=== PATIENT | female | born 1990 | race Caucasian/White ===

== ENCOUNTER 2024-12-22 06:23 | Inpatient (IN) ==
[2024-12-22] MEDS ORDERED: REGLAN INJ 10 MG VIAL IVP PRN ×3 (06:34→23:10)
[2024-12-22] MEDS ORDERED: ZOFRAN INJ 4 MG VIAL IVP PRN ×3 (06:34→23:10)
[2024-12-22] MEDS: D5 1/2 NS 1,000 ML 1,000 ML IV SCH (07:00)
--- NOTE | 2024-12-22 07:18 | DR.OB ---
OB QUICK NOTE Assessment/Plan (1) Encounter for induction of labor: Assessment/Plan: L&D 12/22/24 at 7:10am S-No complaint. O-Afebrile,VSS [id number] with good LTV, +accel, no decel. CTX=mild, occasional CVX=1cm/50%/-1/VTX AROM with clear fluid. IUPC and FSE placed. A-IUP at 39 6/7 weeks for induction P-Begin pitocin induction F/U labs Anticipate
[2024-12-22] MEDS: OXYTOCIN 20 UNIT/1,000 ML-NS 20 UNIT/1,000 ML PLAST..BAG IV PRN (07:45)
[2024-12-22] MEDS: NUBAIN INJ 10 MG AMP IVP PRN (09:49)
--- NOTE | 2024-12-22 11:43 | DR.OB ---
OB QUICK NOTE Assessment/Plan (1) Encounter for induction of labor: Assessment/Plan: L&D 12/22/24 at 11:35am Pitocin=16mu/min. S-No complaint except CTX. O-Afebrile,VSS ZXT=252 with good LTV, +accel, no decel. CTX=q 1 1/2 to 3 min., about 45-55mmHg CVX=3cm/50%/-1/VTX A-IUP at 39 6/7 weeks for induction P-Continue pitocin induction Anticipate
[2024-12-22] MEDS: LR 1,000 ML IV 1,000 ML IV ONE ×2 (11:51→19:47)
[2024-12-22] MEDS: NAROPIN EPIDURAL 0.2% 100 ML ONE (13:19)
[2024-12-22] MEDS: FENTANYL VIAL INJ 100 mcg ONE (13:19)
--- NOTE | 2024-12-22 17:25 | DR.OB ---
OB QUICK NOTE Assessment/Plan (1) Encounter for induction of labor: Assessment/Plan: L&D 12/22/24 at 5:20pm Pitocin=20mu/min. S-No complaint. s/p epidural. O-Afebrile,VSS [id number]=031 with good LTV, +accel, no decel. CTX=q 1 1/2 min., about 55-65mmHg CVX=5-6cm/90%/0/VTX A-IUP at 39 6/7 weeks for induction P-Continue pitocin induction Anticipate
--- NOTE | 2024-12-22 19:36 | DR.OB ---
OB QUICK NOTE Assessment/Plan (1) Encounter for induction of labor: Assessment/Plan: L&D 12/22/24 at 7:30pm Pitocin=20mu/min. S-Patient complains of more pain with CTX and pressure. O-Afebrile,VSS DVL=208 with good LTV, +accel, regular variables with some severe, occasional late decel. CTX=q 1 1/2 to 2 min., about 55-65mmHg CVX=6/50%/0/caput noted with swelling of CVX A-IUP at 39 6/7 weeks with failure to dilate P-To C/S
[2024-12-22] MEDS: ANCEF VIAL 1 GRAM ONE (19:47)
[2024-12-22] MEDS: NS 100 ML IV 100 ML ONE (19:48)
[2024-12-22] MEDS: LIDOCAINE 2%-EPI 1:200,000 ONE (19:56)
[2024-12-22] MEDS: LR 1,000 ML IV 1,500 ML IV PRN (20:00)
[2024-12-22] MEDS: ZOFRAN INJ 4 MG VIAL ONE (20:07)
[2024-12-22] MEDS ORDERED: DANTRIUM PRN (20:09)
[2024-12-22] MEDS: PITOCIN ONE (20:10)
[2024-12-22] MEDS: ANCEF VIAL 1 GRAM IV PRN (20:15)
[2024-12-22] MEDS: ZOFRAN INJ 4 MG VIAL IVP PRN (20:20)
[2024-12-22] MEDS ORDERED: DILAUDID INJ IVP PRN (20:32)
[2024-12-22] MEDS ORDERED: BENADRYL INJ 50 MG VIAL IVP PRN ×2 (20:32→23:10)
[2024-12-22] MEDS: DIPRIVAN VIAL 20 ML ONE (20:34)
[2024-12-22] MEDS: PRECEDEX INJ VIAL IVP PRN (20:41)
[2024-12-22] MEDS: DILAUDID INJ ONE (20:47)
[2024-12-22] MEDS: XYLOCAINE 2 % (PLAIN) ONE (20:56)
[2024-12-22] MEDS ORDERED: XYLOCAINE 2 % (PLAIN) PRN (20:57)
[2024-12-22] MEDS: DIPRIVAN VIAL 170 ML IVP PRN (20:57)
[2024-12-22] MEDS: TORADOL 30 MG VIAL IVP PRN (20:59)
[2024-12-22] MEDS ORDERED: PITOCIN IVP PRN (21:08)
[2024-12-22] MEDS: DILAUDID INJ IVP PRN (21:10)
[2024-12-22] MEDS: PITOCIN IVP ONE (21:25)
[2024-12-22] MEDS: BETADINE SOLN ONE (21:26)
[2024-12-22] MEDS ORDERED: MYLICON TAB 80 MG CHEW PO PRN (23:10)
[2024-12-22] MEDS ORDERED: TORADOL 30 MG VIAL IVP PRN (23:30)
[2024-12-22] MEDS: D5 1/2 NS 1,000 ML 1,000 ML IV ONE (23:30)
[2024-12-23] MEDS: MOTRIN TAB 800 MG PO PRN ×2 (00:23→09:35)
[2024-12-23] MEDS: PERCOCET TAB 5/325 MG PO PRN ×2 (04:10→12:12)
[2024-12-23] MEDS: PITOCIN ONE (05:51)
[2024-12-23] MEDS: MOTRIN TAB 800 MG PO ONE ×2 (05:54→09:51)
[2024-12-23] MEDS: OXYTOCIN 20 UNIT/1,000 ML-NS 20 UNIT/1,000 ML PLAST..BAG IV SCH (05:55)
[2024-12-23] MEDS: PRENATAL PLUS PO SCH (08:09)
[2024-12-23] MEDS: COLACE CAP 100 MG PO SCH (08:09)
[2024-12-23 12:04] VITALS: RESP 18
[2024-12-23] MEDS: BACTROBAN TOPICAL OINT TOP SCH (13:59)
[2024-12-23] MEDS: TORADOL 30 MG VIAL ONE (18:59)
[2024-12-23] MEDS: LR 1,000 ML IV 1,000 ML IV ONE (18:59)
[2024-12-23] MEDS: NUBAIN INJ 10 MG AMP ONE (18:59)
[2024-12-23] MEDS: ADACEL or BOOSTRIX TDaP VACCINE IM ONE (19:23)
[2024-12-24 08:23] VITALS: BP 123/78; PULSE 81; TEMP 97.7; O2SAT 97
== END 2024-12-24 10:45 | disposition home or self-care (01) | DRG 788 ==
LOC: LD 06:23 → MED/SURG 22:10
PROVIDERS: ADMIT Specialist; ATTEND Specialist
DX: Z3A.39 39 weeks gestation of pregnancy; O62.0 Primary inadequate contractions; O99.352 Diseases of the nervous system complicating pregnancy, second trimester; Z37.0 Single live birth